=== PATIENT | male | born 2000 | race Caucasian/White ===

== ENCOUNTER 2018-02-20 17:50 | Inpatient (IN) | payer BC ==
[~2018-02-20] VITALS: Ht 188 cm; Wt 81.6 kg
[2018-02-20 22:30] LABS: Basophils # (auto) 0 uL; Basophils % (auto) 0.1 % (0.0-2.0); Eosinophils # (auto) 0 uL; Eosinophils % (auto) 0.1 % (0.0-7.0); Hematocrit 41.5 % (41.0-53.0); Hemoglobin 13.7 g/dL (13.5-17.5); Lymphocytes # (auto) 1.6 uL; Lymphocytes % (auto) 12.1 % (10.0-50.0); Mean Corpuscular Hemoglobin 28.5 pg (28.0-32.0); Mean Corpuscular Volume 86.3 fL (80.0-100.0); Monocytes % (auto) 7.2 % (0.0-12.0); Neutrophils # (auto) 10.7 uL; Neutrophils % (auto) 80.5 % (37.0-80.0); Nucleated Red Blood Cells % 0.1 %; Platelet Count (auto) 259 10^3/uL (140-450); Red Cell Distribution Width 13.1 % (11.8-14.3); White Blood Cell 13.3 10^3/uL (4.4-10.8)
[2018-02-20 22:57] LABS: Albumin 4.2 g/dL (3.4-5.0); BUN/Creatinine Ratio 15.5; Calcium 8.3 mg/dL (8.5-10.1); Potassium 3.7 mmol/L (3.5-5.1)
[2018-02-20 23:00] LABS: Bilirubin, Total 0.8 mg/dL (0.2-1.0); Total Protein 7.8 g/dL (6.4-8.2)
[2018-02-21] MEDS ORDERED: ACETAMINOPHEN 325 MG TAB PO PRN
[2018-02-21] MEDS ORDERED: ONDANSETRON HCL 4 MG/2 ML VIAL IV PRN
[2018-02-21] MEDS: MORPHINE SULF INJ 2 MG/ML SYRINGE 1ML IV PRN ×2 (01:53→21:03)
[2018-02-21] MEDS: HYDROcodone-ACET 5/325MG TAB PO PRN ×2 (09:09→16:29)
[2018-02-21] MEDS: FAMOTIDINE 20 MG TAB PO SCH ×2 (11:34→21:03)
--- NOTE | 2018-02-21 19:40 | NUR ---
Opening Shift Note Assumed care of patient, awake and alert. No S/S of distress/SOB. Instructed on POC and to call for assist when needed. Pt is currently sitting in bed with the rails up x2, bed is locked in lowest position and call light is within reach. Pt has a 20ga IV left hand that flushes without discomfort. Will continue to monitor.
[2018-02-21 22:00] VITALS: BP 112/54
[2018-02-22 05:00] VITALS: BP 122/66
[2018-02-22 05:51] LABS: Basophils # (auto) 0 uL; Basophils % (auto) 0.5 % (0.0-2.0); Eosinophils # (auto) 0.1 uL; Eosinophils % (auto) 1.4 % (0.0-7.0); Hematocrit 40.8 % (41.0-53.0); Hemoglobin 13.8 g/dL (13.5-17.5); Lymphocytes # (auto) 1.4 uL; Lymphocytes % (auto) 22.4 % (10.0-50.0); Mean Corpuscular Hemoglobin 29.3 pg (28.0-32.0); Mean Corpuscular Hgb Conc. 33.9 g/dL (32.0-36.0); Mean Corpuscular Volume 86.6 fL (80.0-100.0); Monocytes # (auto) 0.8 uL; Monocytes % (auto) 12.2 % (0.0-12.0); Neutrophils # (auto) 3.9 uL; Neutrophils % (auto) 63.5 % (37.0-80.0); Nucleated Red Blood Cells % 0.1 %; Platelet Count (auto) 211 10^3/uL (140-450); Red Blood Cells 4.71 10^6/uL (4.5-5.90); Red Cell Distribution Width 13.2 % (11.8-14.3); White Blood Cell 6.1 10^3/uL (4.4-10.8)
[2018-02-22 06:16] LABS: BUN/Creatinine Ratio 14.5; Calcium 8.8 mg/dL (8.5-10.1); Potassium 4.6 mmol/L (3.5-5.1)
--- NOTE | 2018-02-22 07:30 | NUR ---
Report received. Patient sitting up in bed. Sling noted to right shoulder. Good CMS to right arm. Good radial pulse. No S/S distress. Call light in reach. Will continue to monitor.
[2018-02-22 09:00] VITALS: BP 128/66
[2018-02-22] MEDS: MORPHINE SULFATE 10 MG/ML INJ 1ML SDV IV PRN ×2 (09:45→17:31)
[2018-02-22] MEDS: FAMOTIDINE 20 MG TAB PO SCH ×2 (12:33→21:49)
[2018-02-22 13:00] VITALS: BP 119/60
[2018-02-22 17:00] VITALS: BP 136/81
--- NOTE | 2018-02-22 18:00 | NUR ---
Spoke with patient's mother. She states she obtained an appointment with patient's orthopedist for Monday. She is asking if patient can be discharged today. Explained to her that the patient would have to sign out Against Medical Advice as he has not yet been seen by ortho this visit. Patient's mother states she will call back with a decision.
--- NOTE | 2018-02-22 19:24 | NUR ---
Opening Shift Note SBAR report received from LETI Garsia. Assumed care of patient, awake and alert 4x. No S/S of distress/SOB. states to have mild pain on his RT elbow and wrist, will provide pain medication per MD orders. Instructed on POC and to call for assist PRN, will continue to monitor for changes Q1hr and PRN. pt is waiting on Ortho Consult
[2018-02-22 20:24] VITALS: BP 133/61
[2018-02-22] MEDS: HYDROcodone-ACET 5/325MG TAB PO PRN (21:49)
[2018-02-22 22:00] VITALS: BP 133/61
[2018-02-23 05:00] VITALS: BP 120/63
--- NOTE | 2018-02-23 06:56 | NUR ---
Closing Note SBAR report to be given to day shift RN.Patient is awake and alert 4x. No S/S of distress/SOB, wears rt arm sling. Instructed on POC and to call for assist PRN, please continue to monitor for changes Q1hr and PRN. awaiting ortho consult for a RT clavicular Fx..
[2018-02-23 09:00] VITALS: BP 122/66
[2018-02-23] MEDS: MORPHINE SULFATE 10 MG/ML INJ 1ML SDV IV PRN (09:13)
--- NOTE | 2018-02-23 09:46 | NUR ---
patient not seen by otho since admission. called dr ling office to advise of consult. message left with yard assistant
[2018-02-23] MEDS: FAMOTIDINE 20 MG TAB PO SCH (10:44)
[2018-02-23 13:00] VITALS: BP 118/59
== END 2018-02-23 15:00 | disposition home or self-care (01) | DRG 563 ==
LOC: ER 17:50 → OVERFLOW 23:55 → EAST 02-21 16:09
PROVIDERS: ADMIT Nurse Practitioner; ATTEND Internal Medicine
DX: S42.001A Fracture of unspecified part of right clavicle, initial encounter for closed fracture (principal); W17.89XA Other fall from one level to another, initial encounter; Y92.89 Other specified places as the place of occurrence of the external cause; Y99.8 Other external cause status; V86.56XA Driver of dirt bike or motor/cross bike injured in nontraffic accident, initial encounter; Z82.49 Family history of ischemic heart disease and other diseases of the circulatory system
CPT/HCPCS: 36415; 70450; 71045; 72125; 73030; 73080; 73110; 80048; 80053; 85025; 96374; 96375; 96376; A6257; G0378; J2405